=== PATIENT | female | born 1950 | race Caucasian/White ===

== ENCOUNTER 2017-12-08 06:45 | Day surgery (SDC) | payer MEDICARE, BC ==
[2017-12-08] MEDS ORDERED: Dextrose 5%-Lactated Ringers 1,000 ML IV SCH (07:30)
[2017-12-08] MEDS ORDERED: ceFAZolin 1 GM in Premix Bag 1 BAG IV ONE (07:30)
[2017-12-08] MEDS ORDERED: Propofol 200 MG/20 ML SDV ONE ×2 (07:59→08:24)
[2017-12-08] MEDS ORDERED: fentaNYL 100 MCG/2 ML SDV ONE ×2 (08:00→08:24)
[2017-12-08] MEDS ORDERED: Midazolam 1 MG/ML 2 ML SDV ONE ×2 (08:00→08:24)
[2017-12-08] MEDS: Lidocaine 1% with EPINEPHrine 1:100,000 50 ML MDV ONE ×2 (08:00→09:40)
[2017-12-08] MEDS: Bupivacaine 0.5% 50 ML MDV ONE ×2 (08:00→09:40)
[2017-12-08] MEDS ORDERED: Bacitracin Oint 1 GM U/D Packet ONE (09:17)
[2017-12-08 11:56] VITALS: BP 108/64
--- NOTE | 2017-12-11 09:37 | OR ---
ADDENDUM: 12/16/2017 The length of each incision given includes margins. DATE OF PROCEDURE: 12/08/2017 PREOPERATIVE DIAGNOSIS: Multiple pilar scalp cyst. POSTOPERATIVE DIAGNOSIS: Multiple pilar scalp cyst. PROCEDURE PERFORMED: 1. Excision of pilar cyst posterior occipital area with layered closure (34594, 55173). 2. Excision of pilar cyst mid occipital scalp with layered closure (03997, 44839). 3. Excision of pilar cyst posterior left scalp with layered closure (90941, 96169). 4. Excision of pilar cyst over frontal scalp with layered closure (50406, 04315). ANESTHESIA: Local plus IV sedation. TAMALE MACHINE FEEDER: HANNAH Fernando. INDICATION FOR PROCEDURE: The patient presents with multiple enlarging symptomatic pilar cysts. After preoperative evaluation and discussion, she wished to proceed with excision of these. Potential risk including bleeding, infection, recurrence of the problem over time were reviewed, and the patient wishes to proceed. DETAILS OF PROCEDURE: The patient was taken to the operating room and placed in a supine position. Sites of the cyst to be excised had been marked preoperatively. After the patient was placed in supine position and IV sedation was administered, those areas were prepped and draped. In each case, the cyst was excised with an ellipse of skin overlying the cyst being removed, along with the underlying cyst. In two cases, we broke into the cyst but were careful to get all of the cyst wall out by the completion of the dissection. In each case, the incision was closed with some 5-0 Vicryl stitch deep and then a 5-0 Prolene skin stitch. The lesion over the posterior occipital scalp had a length of 0.4 cm with incision length of 1.2 cm. The mid occipital pilar cyst had a length of 4 mm and incision length was 0.8 cm. The left posterior scalp pilar cyst had a length of 1.8 cm and incision length of 2.7 cm, and finally the pilar cyst over the frontal scalp was 1.9 cm with incision length of 2.3 cm. The patient was taken to the recovery room in satisfactory condition, after bacitracin was placed over the incisions. There were no evident complications. Isak Morrell MD /[id number]
== END 2017-12-08 12:13 | disposition home or self-care (01) ==
LOC: JP.SDS 06:45
PROVIDERS: ATTEND Surgery
DX: L72.11 Pilar cyst (principal)
CPT/HCPCS: 11420; 11422; 12032; 88304; J0690; J2250; J2704; J3010; J7042

== ENCOUNTER 2021-05-03 07:50 | Day surgery (SDC) | payer MEDICARE ==
[2021-05-03] MEDS ORDERED: Sodium Chloride 0.9% 10 ML Syringe FLUSH ONE (08:30)
[2021-05-03 09:20] VITALS: BP 128/81; PULSE 64
--- NOTE | 2021-05-03 10:39 | OR ---
DATE OF PROCEDURE: 05/03/2021 SURGEON: Consuelo Awan MD POSTOPERATIVE CARE: Postoperative care will be provided mainly at the [address] [place] [address] [facility] in conjunction with [facility]. PREOPERATIVE DIAGNOSIS: Cataract, right eye. POSTOPERATIVE DIAGNOSIS: Cataract, right eye. PROCEDURE: Phacoemulsification with intraocular lens placement, right eye. ANESTHESIA: Topical and intracameral. ESTIMATED BLOOD LOSS: Minimal. COMPLICATIONS: None. PATHOLOGY SPECIMENS: None. SURGICAL FINDINGS: None. INDICATION FOR PROCEDURE: The patient is a 70-year-old female with history of a visually significant cataract in the right eye, which interfered with activities of daily living. This consisted of a nuclear sclerosis cataract. Following careful discussion of the risks, benefits and alternatives to cataract extraction with intraocular lens placement including blindness and , the patient elected to proceed, and informed, written consent was obtained prior to the procedure. DESCRIPTION OF THE PROCEDURE: The patient was previously identified, and a regla placed above the right eye. All sources, including the patient, indicated that the right eye was the correct eye. The patient was subsequently taken to the operating room where standard monitors were applied. The patient was then prepped and draped in the usual sterile fashion for ophthalmic surgery. Attention was first directed at the 12 o'clock position where a paracentesis port was fashioned. Shugar solution followed by Viscoat was instilled into the eye. Attention was then directed to the 8:30 position where a triplanar incision was made in a near-clear manner using a keratome. A continuous capsulorrhexis was then made using a combination of the cystotome and Utrata forceps. Hydrodissection was achieved using a balanced salt solution, and the lens rotated nicely. Phacoemulsification was then done using a modified [id number]-bodhzxj technique without complication. Phaco time was 5.89 CDE. The remaining cortex was removed using the irrigation/aspiration handpiece. Provisc was then instilled into the eye. A Technis lens, model DCB00, at 15.0 diopters was then placed in the capsular bag using an [place] injector. The remaining viscoelastic was removed using the irrigation/aspiration forceps. All wounds were then checked and found to be watertight. The lid speculum and drapes were removed. Maxitrol ointment was placed in the patient's right eye, and the eye was shielded. The patient tolerated the procedure well. The patient was instructed to follow up tomorrow. All needle and sponge counts were correct at the end of the procedure. There were no surgical findings. Consuelo Awan MD /[id number]
== END 2021-05-03 09:22 | disposition home or self-care (01) ==
LOC: JP.SDS 07:50
PROVIDERS: ATTEND Ophthalmology
DX: H25.11 Age-related nuclear cataract, right eye (principal)
CPT/HCPCS: 66984; V2632

== ENCOUNTER 2021-06-07 07:01 | Day surgery (SDC) | payer MEDICARE ==
[2021-06-07] MEDS ORDERED: Sodium Chloride 0.9% 10 ML Syringe FLUSH ONE (07:30)
[2021-06-07 08:50] VITALS: BP 122/77; PULSE 61
--- NOTE | 2021-06-07 10:21 | OR ---
DATE OF PROCEDURE: 06/07/2021 SURGEON: Consuelo Awan MD POSTOPERATIVE CARE: Postoperative care will be provided mainly at the [address] [place] [address] [facility] in conjunction with [facility]. PREOPERATIVE DIAGNOSIS: Cataract, left eye. POSTOPERATIVE DIAGNOSIS: Cataract, left eye. PROCEDURE: Phacoemulsification with intraocular lens placement, left eye. ANESTHESIA: Topical and intracameral. ESTIMATED BLOOD LOSS: Minimal. COMPLICATIONS: None. PATHOLOGY SPECIMENS: None. SURGICAL FINDINGS: None. INDICATION FOR PROCEDURE: The patient is a 70-year-old female with history of a visually significant cataract in the left eye, which interfered with activities of daily living. This consisted of a nuclear sclerosis cataract. Following careful discussion of the risks, benefits and alternatives to cataract extraction with intraocular lens placement including blindness and , the patient elected to proceed, and informed, written consent was obtained prior to the procedure. DESCRIPTION OF THE PROCEDURE: The patient was previously identified, and a regla placed above the left eye. All sources, including the patient, indicated that the left eye was the correct eye. The patient was subsequently taken to the operating room where standard monitors were applied. The patient was then prepped and draped in the usual sterile fashion for ophthalmic surgery. Attention was first directed at the 12 o'clock position where a paracentesis port was fashioned. Shugar solution followed by Viscoat was instilled into the eye. Attention was then directed to the 8:30 position where a triplanar incision was made in a near-clear manner using a keratome. A continuous capsulorrhexis was then made using a combination of the cystotome and Utrata forceps. Hydrodissection was achieved using a balanced salt solution, and the lens rotated nicely. Phacoemulsification was then done using a modified [id number]-ahh-ywfjhyc technique without complication. Phaco time was 5.24 CDE. The remaining cortex was removed using the irrigation/aspiration handpiece. Provisc was then instilled into the eye. A Technis lens, model DIB00, at 14.5 diopters was then placed in the capsular bag using an [place] injector. The remaining viscoelastic was removed using the irrigation/aspiration forceps. All wounds were then checked and found to be watertight. The lid speculum and drapes were removed. Maxitrol ointment was placed in the patient's left eye, and the eye was shielded. The patient tolerated the procedure well. The patient was instructed to follow up tomorrow. All needle and sponge counts were correct at the end of the procedure. Consuelo Awan MD /[id number]
== END 2021-06-07 08:59 | disposition home or self-care (01) ==
LOC: JP.SDS 07:01
PROVIDERS: ATTEND Ophthalmology
DX: H25.12 Age-related nuclear cataract, left eye (principal)
CPT/HCPCS: V2632

== ENCOUNTER 2024-05-06 21:19 | Emergency (ER) | payer MEDICARE ==
[2024-05-06 21:31] VITALS: BP 130/66; PULSE 85
== END 2024-05-06 22:06 | disposition home or self-care (01) ==
LOC: JP.ED 21:19
DX: H60.11 Cellulitis of right external ear (principal); Z79.899 Other long term (current) drug therapy; Z86.16 Personal history of COVID-19; Z90.49 Acquired absence of other specified parts of digestive tract
CPT/HCPCS: 99282; 99283